=== PATIENT | male | born 1965 | race Caucasian/White ===

== ENCOUNTER 2019-09-25 13:02 | Emergency (ER) | payer OTHER ==
--- NOTE | 2019-09-25 13:50 | ED Physician Documentation ---
History of Present Illness - Stated complaint Stated Complaint: LT SHOULDER PX - Chief complaint Chief Complaint: Ext Problem - Additonal information Additional information: This is a 54-year-old male presents with left shoulder pain. Patient was walking into a [employer] and he slipped on a wet floor and landed on outstretched arm, he had immediate pain in his left shoulder and unable to lift his arm above 90 degrees without significant pain. He denies numbness or tingling in the arm. He did not directly impact the shoulder on the floor. The pain is okay at rest but moderate to severe with movement. Review of Systems Skin: denies: Rash Musculoskeletal: reports: Extremity pain PD PAST MEDICAL HISTORY - Present Medications Home Medications: Ambulatory Orders Medication Instructions Recorded Confirmed Acetaminophen 650 mg PO Q6HR #30 tablet 09/25/19 Ibuprofen [Ibu] 600 mg PO Q6H PRN #30 tablet 09/25/19 - Allergies Allergies/Adverse Reactions: Allergies Allergy/AdvReac Type Severity Reaction Status Date / Time No Known Drug Allergies Allergy Verified 09/25/19 13:36 PD ED PE NORMAL - General General: Alert and oriented X 3 - HEENT HEENT: Atraumatic - Cardiac Cardiac: Strong equal pulses - Respiratory Respiratory: No respiratory distress - Extremities Extremities: Other (Shoulders are symmetric in appearance. Patient has mild tenderness of the deltoid and the trapezius muscles, but no bony tenderness over the scapula or humerus. He has normal strength distally and brisk capillary refill. Sensation is intact to light touch. With external rotation patient has significant pain, he also has pain with subscapularis liftoff test. His empty can testing and internal rotation are actually quite good bilaterally. He is unable to abduct past 90 degrees due to pain.) - Neuro Neuro: Alert and oriented X 3 - Psych Psych: Normal mood, Normal affect Results - Vitals Vitals: Oxygen O2 Source Room air - Rads (name of study) shoulder Radiology: Other (No acute osseous abnormality) PD MEDICAL DECISION MAKING - ED course ED course: XR is negative however pt does have significant pain with rotator cuff testing, I discussed my concern for potential rotator cuff tear vs. muscle strain or other derangement. We reviewed rest, supportive care, close follow up with PCP or sports med or ortho, and gentle ROM to prevent adhesive capsulitis. Pt agrees and was discharged home. Departure - Departure Disposition: Home, Self Care Clinical Impression: Shoulder pain Qualifiers: Chronicity: acute Laterality: left Qualified Code(s): M25.512 - Pain in left shoulder Condition: Good Follow-Up: Your,pcp [Other] (For follow up on shoulder pain) Prescriptions: Acetaminophen 650 mg PO Q6HR #30 tablet Ibuprofen [Ibu] 600 mg PO Q6H PRN #30 tablet PRN Reason: Pain Comments: You were seen today for shoulder pain. Your x-ray does not show signs of fracture or dislocation, but based on your exam I am concerned you might have torn your rotator cuff. At the very least you strained some muscles around the shoulder. Try the ibuprofen and the Tylenol, rest the shoulder, avoid strenuous movements or lifting objects with it, and follow-up with your primary care provider, or sports medicine doctor or orthopedist if your pain is not improving. Perform gentle range of motion/circling of the shoulder daily to prevent frozen shoulder as we talked about. If you are having worsening symptoms such as weakness or numbness in the arm return to the emergency department Forms: Activity restrictions Discharge Date/Time: 09/25/19 14:48
--- NOTE | 2019-09-25 14:07 | XRAY Report ---
Reason: GLF, pain Procedure Date: 09/25/2019 Accession Number: [id number] / [id number] Procedure: XR - Shoulder 3 View LT CPT Code: Final Report FULL RESULT: EXAM: LEFT SHOULDER RADIOGRAPHY EXAM DATE: 09/25/2019 01:59 PM. CLINICAL HISTORY: GLF, pain. COMPARISON: None. TECHNIQUE: 3 views. FINDINGS: Bones: Osteopenia. Old clavicle fracture. No acute fracture or other bone lesion. Joints: Mild degenerative changes. Anatomic alignment. Soft tissues: Clear visualized lung. IMPRESSION: No acute disease. RADIA
[2019-09-25 14:47] VITALS: BP 127/76
== END 2019-09-25 14:48 | disposition home or self-care (01) ==
LOC: ED 13:02
DX: M25.512 Pain in left shoulder (principal); W01.0XXA Fall on same level from slipping, tripping and stumbling without subsequent striking against object, initial encounter; Y93.01 Activity, walking, marching and hiking; Y92.511 Restaurant or cafe as the place of occurrence of the external cause
CPT/HCPCS: 99283; 99284

== ENCOUNTER 2019-10-27 07:09 | Outpatient (CLI) | payer OTHER ==
--- NOTE | 2019-10-27 09:27 | MRI Report ---
Reason: CONTUSION OF LT SHLDR Procedure Date: 10/27/2019 Accession Number: [id number] / [id number] Procedure: MRI - Shoulder LT W/O CPT Code: Final Report FULL RESULT: EXAM: LEFT SHOULDER MRI WITHOUT CONTRAST EXAM DATE: 10/27/2019 08:06 AM. CLINICAL HISTORY: Left shoulder contusion and pain after fall. COMPARISON: SHOULDER 3 VIEW LT 09/25/2019 1:52 PM. TECHNIQUE: Multiplanar, multisequence T1-weighted and fluid-sensitive sequences of the shoulder without contrast. Other: None. FINDINGS: Acromioclavicular Region: The acromion is type II. The acromioclavicular joint is unremarkable. The coracoacromial and coracoclavicular ligaments are intact. Small amount of fluid at the subacromial subdeltoid bursa. Glenohumeral Region: Small joint effusion. No loose bodies. No subluxations. The articular cartilage is unremarkable. Bone Marrow: No fracture, marrow edema or bone lesions. Labrum: Free edge fraying at the superior aspect of the labrum. Slight T2 hyperintense signal at the superior aspect of the labrum which may represent degeneration or a tear. Musculature/Rotator Cuff: There is an approximately 9 x 2 mm low-grade partial thickness intrasubstance insertional tear at the distal end of the supraspinatus tendon. There is infraspinatus tendinosis. The teres minor tendon is unremarkable. There is a focal high-grade partial thickness tear at the distal superior aspect of the subscapularis tendon. No edema or fatty atrophy. Biceps Tendon: The long head biceps tendon is subluxed medially from the bicipital groove. Other: The subcutaneous tissues are unremarkable. IMPRESSION: 1. Low-grade partial-thickness intrasubstance insertional tear at the distal end of the supraspinatus tendon. Infraspinatus tendinosis. Focal high-grade partial thickness tear at the distal superior aspect of the subscapularis tendon. 2. Medial subluxation of the long head biceps tendon from the bicipital groove which is probably due to the partial-thickness subscapular tendon tears and tears of the coracohumeral and superior glenohumeral ligaments. 3. Small amount of fluid at the subacromial subdeltoid bursa. Small glenoid humeral joint effusion. 4. Free edge fraying at the superior aspect of the labrum. Findings suspicious for degeneration or a tear at the superior aspect of the labrum. RADIA
== END 2019-10-27 07:10 | disposition home or self-care (01) ==
LOC: DI 07:09
PROVIDERS: ATTEND Orthopaedic Surgery Sports Medicine
DX: M75.112 Incomplete rotator cuff tear or rupture of left shoulder, not specified as traumatic (principal); M25.412 Effusion, left shoulder; M75.92 Shoulder lesion, unspecified, left shoulder; M75.82 Other shoulder lesions, left shoulder